=== PATIENT | male | born 1980 | race African-American/Black ===

== ENCOUNTER 2020-02-07 16:06 | Emergency (ER) | payer MEDICARE ==
[~2020-02-07] VITALS: Ht 180.3 cm; Wt 96.0 kg
--- NOTE | 2020-02-07 16:17 | NUR ---
BIB [facility] FROM [facility]. PT FELT RIGHT HIP POP YESTERDAY, UNABLE TO AMBULATE PROPERLY. PT TRANSFERRED FROM [facility] TO [facility] WITHOUT ASSISTANCE. 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 PT C/O LOSS OF TASTE AND SMELL FOR A FEW DAYS. PT CONNECTED TO MONITORING. CALL LIGHT IN REACH.
[2020-02-07] MEDS ORDERED: ONDANSETRON 2MG/ML, 2ML ONE (17:43)
[2020-02-07] MEDS ORDERED: MORPHINE SULFATE 4 MG/ML, 1ML ONE (17:43)
[2020-02-07] MEDS ORDERED: ONDANSETRON 2MG/ML, 2ML IVPush ONE (18:00)
[2020-02-07] MEDS ORDERED: MORPHINE SULFATE 4 MG/ML, 1ML IVPush PRN (18:00)
[2020-02-07 18:03] VITALS: BP 112/76
--- NOTE | 2020-02-07 18:03 | NUR ---
PT BACK FROM XRAY. MEDS ADMIN PER MAY. PT RESTING COMFORTABLY ON RBRISTOW. ARLENE.
--- NOTE | 2020-02-07 18:14 | NUR ---
ALL RESULTS ARE BACK AT THIS TIME. CHART UP FOR RECHECK.
== END 2020-02-07 19:33 | disposition home or self-care (01) ==
LOC: ED 17:00
DX: S39.012A Strain of muscle, fascia and tendon of lower back, initial encounter (principal); S33.5XXA Sprain of ligaments of lumbar spine, initial encounter; M54.16 Radiculopathy, lumbar region; X58.XXXA Exposure to other specified factors, initial encounter; Y93.89 Activity, other specified; Y92.89 Other specified places as the place of occurrence of the external cause; Y99.8 Other external cause status
CPT/HCPCS: 72110; 96374; 96375; 99284; J2270; J2405

== ENCOUNTER 2020-04-17 08:59 | Emergency (ER) | payer MEDICARE ==
[~2020-04-17] VITALS: Ht 180.3 cm; Wt 100.0 kg
--- NOTE | 2020-04-17 09:25 | NUR ---
PLACED ON CHEMISTRY QUALITY CONTROL ANALYST PIV PLACED FROM WHICH LABS WERE DRAWN THEN MEDICATED PER [facility] WITH 1L NS
[2020-04-17] MEDS ORDERED: SODIUM CHLORIDE 0.9% 1,000ML IVBOLUS ONE (09:30)
[2020-04-17] MEDS ORDERED: MAALOX/HYOSCYAMINE/LIDOCAINE 45 ML BTL PO ONE (09:30)
[2020-04-17] MEDS ORDERED: SODIUM CHLORIDE FLUSH 10ML SYR IVF ONE (09:30)
[2020-04-17 09:45] LABS: BASOPHILS % (AUTO) 1 % (0-1); EOSINOPHILS % (AUTO) 1 % (1-7); LYMPHOCYTES % (AUTO) 28 % (22-44); MEAN CORPUSCULAR HEMOGLOBIN 34.3 pg (27.5-34.5); MEAN CORPUSCULAR HGB CONC 34.5 g/dL (33.2-36.2); MEAN PLATELET VOLUME 6.8 fL (7.4-10.4); MONOCYTES % (AUTO) 12 % (2-9); NEUTROPHILS % (AUTO) 59 % (42-75); PLATELET COUNT 339 x10^3/uL (130-400); RED BLOOD COUNT 4.39 x10^6/uL (4.38-5.82); RED CELL DISTRIBUTION WIDTH 13.2 % (9.4-14.8)
[2020-04-17 09:49] LABS: MD NO
[2020-04-17] MEDS ORDERED: MAALOX/HYOSCYAMINE/LIDOCAINE 45 ML BTL ONE (09:50)
[2020-04-17 09:56] LABS: ALANINE AMINOTRANSFERASE 33 U/L (12-78); ALBUMIN 3.7 g/dL (3.4-5.0); ANION GAP 8 mmol/L (5-15); CALCIUM 9.6 mg/dL (8.5-10.1); CHLORIDE 103 mmol/L (98-107); CREATININE 1.16 mg/dL (0.7-1.3)
[2020-04-17 10:01] LABS: ALKALINE PHOSPHATASE 81 U/L (45-117); BILIRUBIN,TOTAL 0.9 mg/dL (0.2-1.0); TOTAL PROTEIN 7.9 g/dL (6.4-8.2); TROPONIN I < 0.015 ng/mL (0.000-0.045)
[2020-04-17 10:25] VITALS: BP 124/86
[2020-04-17] MEDS ORDERED: KETOROLAC 30 MG/1 ML ONE (10:43)
[2020-04-17] MEDS ORDERED: KETOROLAC 30 MG/1 ML IM ONE (11:00)
== END 2020-04-17 11:14 | disposition home or self-care (01) ==
LOC: ED 10:37
DX: K29.00 Acute gastritis without bleeding (principal); R10.13 Epigastric pain; R00.0 Tachycardia, unspecified; R11.0 Nausea
CPT/HCPCS: 36415; 74022; 80053; 83690; 84484; 85025; 93005; 96372; 99285; J1885; J7030

== ENCOUNTER 2020-04-17 20:36 | Emergency (ER) | payer MEDICARE ==
[~2020-04-17] VITALS: Ht 180.3 cm; Wt 95.3 kg
[2020-04-17] MEDS ORDERED: MAALOX/HYOSCYAMINE/LIDOCAINE 45 ML BTL ONE (21:12)
--- NOTE | 2020-04-17 21:19 | NUR ---
Pt given maalox refusing to take it says wants something stronger, rx and instruct given pt wants to speak with ERP now. VSS.
--- NOTE | 2020-04-17 21:23 | NUR ---
Pt informed will not be getting anymore pain medication, rx given instruct and f/u. Pt becoming aggitated, yelling at the nurse that he wants pain medications. Informed pt to get dressed or security will be on way.
[2020-04-17 21:24] VITALS: BP 135/77
[2020-04-17] MEDS ORDERED: MAALOX/HYOSCYAMINE/LIDOCAINE 45 ML BTL PO ONE (21:30)
--- NOTE | 2020-04-17 21:40 | NUR ---
Pt left gi cocktail thrown on counter, left rx and discharge papers and left.
== END 2020-04-17 21:30 ==
LOC: ED 20:52
DX: K29.00 Acute gastritis without bleeding (principal); R10.84 Generalized abdominal pain; R00.0 Tachycardia, unspecified; R11.0 Nausea; R10.13 Epigastric pain; F17.290 Nicotine dependence, other tobacco product, uncomplicated
CPT/HCPCS: 99283; 99406

== ENCOUNTER 2020-07-13 12:35 | Emergency (ER) | payer MEDICARE ==
[~2020-07-13] VITALS: Ht 182.9 cm; Wt 85.0 kg
[2020-07-13 12:41] VITALS: BP 117/78
--- NOTE | 2020-07-13 12:45 | NUR ---
TASK RN: BIB BY [facility] FROM [facility] FOR WELL CARE CHECK. FOUND SLEEPING IN [facility]. WOULD NOT ANSWER QUESTIONS-[facility] UNABLE TO PERFORM EXAM PATIENT NOT RESPONDING TO MOST QUESTIONS. ON ARRIVAL ANSWER YES/NO QUESTIONS WITH A HEAD NOD APPROPRIATELY AGREEABLE TO VITALS-UNREMARKABLE REFUSING FSBS
--- NOTE | 2020-07-13 12:58 | NUR ---
PT RESTING IN BED WITH EYES CLOSED. NAD NOTED AT THIS TIME. PT REFUSES TO ANSWER QUESTIONS SUCH HIS NAME AND . WHEN RN ASKED WHY PT WAS HERE, HE SHRUGS. WHEN RN ASKS IF PT HAS PAIN HE DENIES. WHEN RN ASKS IF PT WOULD LIKE TO LEAVE, HE KNODS YES. AWAITING ERMD EVALUATION. VSS AT THIS TIME. SIDE RAILS UP, CALL LIGHT IN REACH.
--- NOTE | 2020-07-13 13:58 | NUR ---
awaiting hi paperwork.
--- NOTE | 2020-07-13 14:09 | NUR ---
pt now refusing dc after multiple attempts to leave, repeatedly asking for taxi voucher. Refuses to answer any questions. Security called.
== END 2020-07-13 14:19 | disposition home or self-care (01) ==
LOC: ED 14:04
DX: R41.82 Altered mental status, unspecified (principal)
CPT/HCPCS: 99283

== ENCOUNTER 2020-10-18 15:12 | Emergency (ER) | payer MEDICARE ==
--- NOTE | 2020-10-18 15:47 | NUR ---
[phone]
--- NOTE | 2020-10-18 16:05 | NUR ---
[phone]
== END 2020-10-18 16:15 | disposition left against medical advice (07) ==
LOC: ED 16:15
DX: Z53.21 Procedure and treatment not carried out due to patient leaving prior to being seen by health care provider (principal)